=== PATIENT | male | born 1955 | race Caucasian/White ===

== ENCOUNTER → 2022-01-21 | Emergency (ER) | payer MEDICARE ==
[~2022-01-21] VITALS: Ht 170.2 cm; Wt 124.7 kg
[~2022-01-21] MED LIST: ADULT LOW DOSE81 MG PO; AMLODIPINE BESYL5 MG PO; FENOFIBRATE160 MG PO; HYDRALAZINE HCL10 MG PO; HYDROCHLOROTH12.5 MG PO; ISOSORBIDE MONO60 MG PO; LABETALOL HCL200 MG PO; LISINOPRIL40 MG PO; PRASUGREL HCL10 MG PO; ROSUVASTATIN CA20 MG PO
--- NOTE | 2022-01-22 17:16 | EKG ---
[facility] [address] [facility] [place] [address] \T\ T wave abnormality, consider anterolateral ischemia Abnormal ECG When compared with ECG of 21-JAN-2022 12:51, (Unconfirmed) T wave inversion now evident in Anterolateral leads Confirmed by YAMIL SNELL MD ([id number]) on 01/22/2022 5:16:20 PM Electronically Signed By: YAMIL SNELL MD 01/22/22 1716 PATIENT NAME: ROSASFLAVIA YOVANY Electrocardiogram DATE OF : 57 PHYSICIAN: YAMIL SNELL MD REPORT #: [id number] REPORT IS CONFIDENTIAL AND NOT TO BE RELEASED WITHOUT AUTHORIZATION
--- NOTE | 2022-01-22 17:16 | EKG ---
[facility] [address] [facility] [place] [address] Signed Sinus bradycardia Nonspecific ST abnormality Abnormal ECG No previous ECGs available Confirmed by YAMIL SNELL MD ([id number]) on 01/22/2022 5:16:05 PM Electronically Signed By: YAMIL SNELL MD 01/22/22 1716 PATIENT NAME: FLAVIA PILLAI Electrocardiogram DATE OF : 57 PHYSICIAN: YAMIL SNELL MD REPORT #: [id number] REPORT IS CONFIDENTIAL AND NOT TO BE RELEASED WITHOUT AUTHORIZATION
== END ==
LOC: ED 12:46
DX: I21.4 Non-ST elevation (NSTEMI) myocardial infarction (principal); I16.0 Hypertensive urgency; Z79.899 Other long term (current) drug therapy; Z79.82 Long term (current) use of aspirin; Z20.822 Contact with and (suspected) exposure to COVID-19
CPT/HCPCS: 36415; 71045; 80053; 83735; 84484; 85025; 93005; 93010; 99285-25; C9803; U0003

== ENCOUNTER 2024-11-25 09:34 | Day surgery (SDC) | payer MEDICARE ==
[~2024-11-25] VITALS: Ht 167.6 cm; Wt 129.5 kg
--- NOTE | ~2024-11-25 | OR ---
[facility] [address] [place], [place] [address] Draft DATE OF OPERATION: 11/25/2024 SURGEON: Thad Ramirez MD PREOPERATIVE DIAGNOSIS: History of tubular adenoma in 2012, otherwise asymptomatic. POSTOPERATIVE DIAGNOSES: 1. Extensive sigmoid and left-sided diverticulosis. 2. Polyps x4. PROCEDURES: 1. Total colonoscopy to cecum with cold snare polypectomy x2. 2. Cold morcellation polypectomy x2. ANESTHESIA: Intravenous sedation, fentanyl 100 mcg and Versed 8 mg. INDICATIONS FOR THE PROCEDURE: This 69-year-old white man is patient of Dr. Beverly Lin has history of colonoscopy with excision of a tubular adenoma in 2012. He currently has no symptoms of bleeding, diarrhea, or constipation and no family history of colon cancer. He is admitted to undergo colonoscopy for screening. He understands the risk of bleeding, infection, and perforation. FINDINGS: The prep was adequate. Complete colonoscopy was undertaken to the cecum without question. Extensive diverticulosis of the sigmoid and left colon. He had four polyps in total, all excised completely, one in the proximal ascending colon, the other distal ascending colon and third in the left colon, another in the rectosigmoid. DESCRIPTION OF PROCEDURE: The patient was brought to the endoscopy suite and placed in lateral decubitus position, given intravenous sedation to the point of slurred speech and nystagmus. Full cardiopulmonary monitoring was maintained. Digital rectal examination was normal. An Olympus video colonoscope was passed into the rectum and manipulated into the sigmoid, where numerous diverticula were seen. The scope was advanced ultimately to the cecum. The ileocecal valve and appendiceal orifice were normal. The scope was withdrawn and promptly noted was a somewhat flat, but sessile polyp in the proximal PATIENT NAME: FLAVIA PILLAI OPERATIVE REPORT DATE OF : 57 REPORT #: [id number] PHYSICIAN: THAD RAMIREZ MD PCP: BEVERLY LIN MD REPORT IS CONFIDENTIAL AND NOT TO BE RELEASED WITHOUT AUTHORIZATION [facility] [address] [place] [id number] Draft ascending colon, this was excised with cold snare technique completely with good hemostasis. Specimen was placed in a George-Net and extracted and passed for Pathology. The scope was once again withdrawn from that site. Examination undertaken, showed a small polyp of the proximal ascending colon, this was excised with cold morcellation technique. Further withdrawal showed no other abnormality until the left colon where a small polyp was noted, this was excised with cold snare technique. He had another small polyp was noted in the rectosigmoid, it was excised with cold snare technique. Retroflexed view of the rectum was normal. Scope was removed. The patient was taken to the recovery room in good condition. CONCLUDING DIAGNOSIS: Polyps x4 and diverticulosis. PLAN: Recommend repeat colonoscopy in 5 years based on clinical findings or sooner if symptoms should develop. Recommend high-fiber diet. MD SHELL Estrella/LISSY /[id number] cc: Beverly Lin MD Copies: BEVERLY LIN MD ~ PATIENT NAME: ROSASFLAVIA YOVANY OPERATIVE REPORT DATE OF : 57 REPORT #: [id number] PHYSICIAN: THAD RAMIREZ MD PCP: BEVERLY LIN MD REPORT IS CONFIDENTIAL AND NOT TO BE RELEASED WITHOUT AUTHORIZATION
[~2024-11-25 09:34] MED LIST changes: +COREG12.5 MG PO; +ELIQUIS5 MG PO; +IBLOOD GLUCOSE TEST STRIP 1 EA TEST VI PRN; +LACTATED RINGER'S 1,000 ML IV SCH; +LIDOCAINE HCL 1% 5 ML SDV INJ ONE; +MIDAZOLAM HCL 5 MG/5 ML VIAL IV PRN; +SPIRONOLACTONE25 MG PO; +fentaNYL citrate 100 MCG/2 ML VIAL IV PRN
[2024-11-25 09:57] VITALS: BP 144/69
[2024-11-25] MEDS ORDERED: MIDAZOLAM HCL 5 MG/5 ML VIAL ONE (10:27)
[2024-11-25] MEDS ORDERED: fentaNYL citrate 100 MCG/2 ML VIAL ONE (10:28)
--- NOTE | 2024-11-25 11:41 | NUR ---
11/25/24 1141 Judie León 1133-PT ARRIVES TO PACU VIA STRETCHER RESTING ON LT SIDE, PT A+O X4, PT DENIES PAIN OR NAUSEA, PT ENCOURAGED TO PASS GAS. VSS ON 2L VIA NC, RR EVEN AND UNLABORED. 1140- AT BEDSIDE TO DISCUSS PROCEDURE RESULTS AND PLAN OF CARE W/ PT, ALL QUESTIONS ANSWERED.
[2024-11-25 12:10] VITALS: BP 128/70
--- NOTE | 2024-11-28 13:25 | PATH ---
[facility] [address] [place], [place] [address] Signed SPECIMEN(S): A ASCENDING COLON POLYP SPECIMEN(S): B ASCENDING COLON POLYP SPECIMEN(S): C DESCENDING COLON POLYP SPECIMEN(S): D RECTOSIGMOID POLYP SPECIMEN SOURCE: A. ASCENDING COLON POLYP B. ASCENDING COLON POLYP C. DESCENDING COLON POLYP D. RECTOSIGMOID POLYP CLINICAL HISTORY: History of colon polyps FINAL PATHOLOGIC DIAGNOSIS: A. Ascending colon polyp: - Tubular adenoma (three fragments). B. Ascending colon polyp: - Tubular adenoma (three fragments). C. Descending colon polyp: - Tubular adenoma (two fragments). D. Rectosigmoid polyp: - Tubular adenoma (one fragment). JVR:cml MICROSCOPIC EXAMINATION: Histologic sections of all submitted blocks are examined by light microscopy. These findings, together with the gross examination, support the pathologic diagnosis. GROSS DESCRIPTION: A. The specimen, labeled and designated "Hair, ascending colon polyp," is received in formalin and consists of three joaquin soft tissue fragments, ranging from 0.4-0.7 cm. Entirely submitted in (A1). B. The specimen, labeled and designated "Hair, ascending colon polyp," is received in formalin and consists of three joaquin soft tissue fragments, ranging from 0.2-0.3 cm. Entirely submitted in (B1). C. The specimen, labeled and designated "Hair, descending colon polyp," is received in formalin and consists of two joaquin soft tissue fragments, ranging from 0.2-0.4 cm. Entirely submitted in (C1). D. The specimen, labeled and designated "Hair, rectosigmoid polyp," is PATIENT NAME: FLAVIA PILLAI PATHOLOGY DATE OF : 57 REPORT #: [id number] PHYSICIAN: JOSE DAWKINS PCP: BEVERLY MOTTA MD REPORT IS CONFIDENTIAL AND NOT TO BE RELEASED WITHOUT AUTHORIZATION [facility] [address] [place], [place] [address] Signed received in formalin and consists of one joaquin soft tissue fragment, 0.2 cm. Entirely submitted in (D1). VB (under the direct supervision of a pathologist) The Gross Description was prepared using a voice recognition system. The report was reviewed for accuracy; however, sound-alike word errors, addition and/or deletions may occur. If there is any question about this report, please contact Client Services. PERFORMING LABORATORY: Technical component was performed by [facility], [address] [place] [address] (CLIA# [id number]). Professional interpretation was performed by [facility] - [facility], [address] [place] [id number] (CLIA#: [id number]). Diagnostician: Mj Allen MD Pathologist Electronically Signed 11/28/2024 Copies: ~ PATIENT NAME: FLAVIA PILLAI PATHOLOGY DATE OF : 57 REPORT #: [id number] PHYSICIAN: JOSE DAWKINS PCP: BEVERLY MOTTA MD REPORT IS CONFIDENTIAL AND NOT TO BE RELEASED WITHOUT AUTHORIZATION
== END 2024-11-25 12:10 | disposition home or self-care (01) ==
LOC: DS 09:34
PROVIDERS: ATTEND Surgery
PROC: 0DBN8ZZ Excision of Sigmoid Colon, Via Natural or Artificial Opening Endoscopic (ICD-10-PCS; 2024-11-25)
PROC: 0DBM8ZZ Excision of Descending Colon, Via Natural or Artificial Opening Endoscopic (ICD-10-PCS; 2024-11-25)
PROC: 0DBK8ZZ Excision of Ascending Colon, Via Natural or Artificial Opening Endoscopic (ICD-10-PCS; principal; 2024-11-25 10:15)
DX: Z12.11 Encounter for screening for malignant neoplasm of colon (principal); D12.2 Benign neoplasm of ascending colon; D12.4 Benign neoplasm of descending colon; D12.7 Benign neoplasm of rectosigmoid junction; K57.30 Diverticulosis of large intestine without perforation or abscess without bleeding; Z91.041 Radiographic dye allergy status
CPT/HCPCS: 88305; 99153; G0500; J2250; J3010; J7121

== ENCOUNTER 2025-07-11 18:45 | Emergency (ER) | payer MEDICARE ==
[~2025-07-11] VITALS: Ht 167.6 cm; Wt 127.0 kg
[~2025-07-11 18:45] MED LIST changes: -IBLOOD GLUCOSE TEST STRIP 1 EA TEST VI PRN; -LACTATED RINGER'S 1,000 ML IV SCH; -LIDOCAINE HCL 1% 5 ML SDV INJ ONE; -MIDAZOLAM HCL 5 MG/5 ML VIAL IV PRN; -fentaNYL citrate 100 MCG/2 ML VIAL IV PRN
[2025-07-11 19:07] LABS: BASOPHILS 0.7 % (0.2-1.2); EOSINOPHILS 4.1 % (0.8-7.0); LYMPHOCYTES 29.5 % (21.8-53.1); MCH 29.5 PG (25.7-32.2); MCHC 32.3 g/dL (32.3-36.5); MCV 91.5 fL (79.0-92.2); MONOCYTES 9.9 % (5.3-12.2); NEUTROPHILS 55.4 % (34.0-67.9); RBC 4.71 M/uL (4.63-6.08)
[2025-07-11 19:24] LABS: ALT (SGPT) 47.0 U/L (14-59); AST (SGOT) 33.0 U/L (15-37); GLOMERULAR FILTRATION RATE,EST 68.0 mL/min (>60); PROTEIN, TOTAL 7.0 g/dL (6.4-8.2); UREA NITROGEN 21.0 mg/dL (7-18)
[2025-07-11] MEDS ORDERED: MAGNESIUM OXIDE 400 MG TABLET PO ONE (19:45)
[2025-07-11] MEDS ORDERED: LABETALOL HCL 20 MG/4 ML VIAL IV ONE (19:45)
[2025-07-11 21:32] LABS: BLOOD/HGB, URINE NEGATIVE (Negative); KETONE, URINE NEGATIVE (Negative); LEUK ESTERASE, URINE TRACE (negative); NITRITE, URINE NEGATIVE (negative)
[2025-07-11 21:35] VITALS: BP 137/67
[2025-07-11 21:37] LABS: BACTERIA, URINE RARE /hpf (negative); CASTS, URINE NONE SEEN \\lpf; CRYSTALS, URINE NONE SEEN (0-1+); EPITHELIAL CELLS, URINE SQUAMOUS 1+ /lpf (0-1+)
[2025-07-11 21:38] LABS: REFLEX CULTURE, URINE No (No)
[2025-07-11 21:45] LABS: AMPHETAMINES, URINE NEGATIVE (NEGATIVE); BARBITURATES, URINE NEGATIVE (NEGATIVE); BENZODIAZEPINE, URINE NEGATIVE (NEGATIVE); CANNABINOID, URINE NEGATIVE (NEGATIVE); COCAINE, URINE NEGATIVE (NEGATIVE); ECSTASY, URINE NEGATIVE (NEGATIVE); FENTANYL, URINE NEGATIVE (NEGATIVE); METHADONE, URINE NEGATIVE (NEGATIVE); OPIATES, URINE NEGATIVE (NEGATIVE); OXYCODONE, URINE NEGATIVE (NEGATIVE); PHENCYCLIDINE, URINE NEGATIVE (NEGATIVE)
--- NOTE | 2025-07-12 18:49 | EKG ---
[facility] [address] [facility] [place] [address] Signed Sinus bradycardia Otherwise normal ECG When compared with ECG of 21-JAN-2022 16:04, Nonspecific T wave abnormality no longer evident in Inferior leads T wave inversion no longer evident in Anterolateral leads Confirmed by Steffen Martinez DO ([id number]) on 07/12/2025 6:49:08 PM Electronically Signed By: STEFFEN MARTINEZ DO 07/12/25 1849 PATIENT NAME: FLAVIA PILLAI Electrocardiogram DATE OF : 57 PHYSICIAN: STEFFEN MARTINEZ DO REPORT #: [id number] REPORT IS CONFIDENTIAL AND NOT TO BE RELEASED WITHOUT AUTHORIZATION
== END 2025-07-11 21:36 | disposition home or self-care (01) ==
LOC: ED 18:45
PROVIDERS: Emergency Medicine; Internal Medicine
DX: I16.0 Hypertensive urgency (principal); I10 Essential (primary) hypertension; I48.0 Paroxysmal atrial fibrillation; I25.2 Old myocardial infarction; E78.5 Hyperlipidemia, unspecified; E66.9 Obesity, unspecified; Z68.42 Body mass index [BMI] 45.0-49.9, adult; Z95.5 Presence of coronary angioplasty implant and graft; Z91.041 Radiographic dye allergy status; Z79.01 Long term (current) use of anticoagulants; Z79.82 Long term (current) use of aspirin; Z79.899 Other long term (current) drug therapy
CPT/HCPCS: 36415; 71045; 80053; 80307; 81001; 82550; 83735; 83880; 84484; 85025; 96374; 99285-25

== ENCOUNTER 2025-07-14 11:20 | Emergency (ER) | payer MEDICARE ==
[~2025-07-14] VITALS: Ht 167.6 cm; Wt 127.0 kg
--- OUTSIDE RECORDS SUMMARY | 2025-07-14 11:27 | XMS ---
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 Daniela VISIT COUNT (12 MO.) [address] NOTE: Visits indicate total known visits. ED/C VISIT TRACKING (12 MO.) 07/14/2025 11:21 [facility] TYPE: Emergency COMPLAINT: - BLOOD PRESSURE 07/11/2025 18:46 [facility] [place] TYPE: Emergency COMPLAINT: - BLOOD PRESSURE PROBLEMS DIAGNOSES: - Body mass index [BMI] 45.0-49.9, adult - Essential (primary) hypertension - Hyperlipidemia, unspecified - Hypertensive urgency - buttermaker continuous churn (current) use of anticoagulants - custodial (current) use of aspirin - Obesity, unspecified - Old myocardial infarction - Other buttermaker continuous churn (current) drug therapy - Paroxysmal atrial fibrillation - Presence of coronary angioplasty implant and graft - Radiographic dye allergy status 03/02/2025 19:10 [facility] TYPE: Emergency DIAGNOSES: - Chest pain, unspecified - Afib - Chest Pain - Palpitations INPATIENT VISIT TRACKING (12 MO.) 03/02/2025 19:10 [place] [facility] Ferny Pedro TYPE: Internal Medicine DIAGNOSES: - Chest pain, unspecified - Hyperlipidemia, unspecified - Obstructive sleep apnea (adult) (pediatric) - Paroxysmal atrial fibrillation - Presence of coronary angioplasty implant and graft [email or web address]
[2025-07-14 13:08] LABS: BASOPHILS 0.8 % (0.2-1.2); EOSINOPHILS 3.2 % (0.8-7.0); LYMPHOCYTES 24.5 % (21.8-53.1); MCH 29.9 PG (25.7-32.2); MCHC 32.8 g/dL (32.3-36.5); MCV 91.1 fL (79.0-92.2); MONOCYTES 8.8 % (5.3-12.2); NEUTROPHILS 62.4 % (34.0-67.9); RBC 4.92 M/uL (4.63-6.08)
[2025-07-14 13:30] LABS: ALT (SGPT) 38.0 U/L (14-59); AST (SGOT) 24.0 U/L (15-37); GLOMERULAR FILTRATION RATE,EST 62.0 mL/min (>60); PROTEIN, TOTAL 7.3 g/dL (6.4-8.2); UREA NITROGEN 27.0 mg/dL (7-18)
[2025-07-14 15:11] VITALS: BP 163/73
--- NOTE | 2025-07-14 19:52 | EKG ---
[facility] [address] [facility] [place] [address] Signed Sinus bradycardia Otherwise normal ECG When compared with ECG of 11-JUL-2025 18:56, No significant change was found Confirmed by Steffen Martinez DO ([id number]) on 07/14/2025 7:52:37 PM Electronically Signed By: STEFFEN MARTINEZ DO 07/14/251951 PATIENT NAME: CORINA PILLAI Electrocardiogram DATE OF : 57 PHYSICIAN: STEFFEN MARTINEZ DO REPORT #: [id number] REPORT IS CONFIDENTIAL AND NOT TO BE RELEASED WITHOUT AUTHORIZATION
== END 2025-07-14 15:08 | disposition home or self-care (01) ==
LOC: ED 11:20
PROVIDERS: Emergency Medicine
DX: I10 Essential (primary) hypertension (principal); E66.9 Obesity, unspecified; I25.2 Old myocardial infarction; Z91.041 Radiographic dye allergy status; Z79.899 Other long term (current) drug therapy; Z79.01 Long term (current) use of anticoagulants; Z79.82 Long term (current) use of aspirin
CPT/HCPCS: 36415; 71045; 80053; 83880; 84484; 85025; 93005; 93010; 99284-25